=== PATIENT | female | born 1995 | race Caucasian/White ===

== ENCOUNTER 2017-11-14 19:40 | Emergency (ER) | payer OTHER, SELFPAY ==
[2017-11-14 19:56] VITALS: BP 111/77; PULSE 86; RESP 18; TEMP 37.1; O2SAT 98
--- NOTE | 2017-11-14 20:12 | ED.PREGNANCY ---
HPI - General Chief complaint: OB/Uterine Contractions Stated complaint: 15 WKS FALL BLEEDING CRAMPING Time Seen by Provider: 11/14/17 20:12 Source: patient Mode of arrival: ambulatory Limitations: no limitations History of Present Illness HPI Narrative: Patient is a 21-year-old at 15 weeks EGA by last menstrual. Here for evaluation of abdominal cramping and vaginal spotting after fall. Patient states that prior to arrival earlier this afternoon she was tripped by her large family dog. She states that she fell and landed on her right abdomen. Did not hit her head. No loss of consciousness. No extremity injuries. No neck pain. She states she was able to ambulate afterwards. Since then she has had pain in her right abdomen and also with some cramping. She states she urinated after she got up and when she wiped she noticed some spotting. She thinks it is coming from the vaginal vault. Is being followed by [facility] secondary to her other medical problems. 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 Patient : Yes Related Data Home Medications Medication Instructions Recorded Confirmed acetazolamide [Diamox Sequels] 1 tab PO BID #0 12/11/16 citalopram [Celexa] 2 tab #0 12/11/16 vit-iron fum-folic ac 1 tab PO DAILY #0 12/11/16 11/14/17 [Mynatal] Allergies Allergy/AdvReac Type Severity Reaction Status Date / Time Penicillins [PENICILLINS] Allergy Severe SOB, HIVES Verified 11/14/17 20:00 Review of Systems Constitutional Denies chills, Denies fever(s) and Denies headache(s) ENT Ears, Nose, Mouth, and Throat: Denies headache(s) Cardiovascular Denies chest pain and Denies dyspnea Respiratory Denies dyspnea Gastrointestinal Gastrointestinal: Reports abdominal pain, Reports cramping, Denies diarrhea, Denies nausea and Denies vomiting Genitourinary Denies dysuria, Denies pelvic pain and Denies flank pain Comments: Vaginal spotting Musculoskeletal Denies myalgias and Denies arthralgias Integumentary/Breasts Denies lesions and Denies rash Neurologic Denies headache(s) Hematologic/Lymphatic Denies easy bleeding and Denies easy bruising PMFSH - Past Medical History History of bacterial meningitis Surgical history: Reports other (PP shunt placement) Patient : Yes Psychiatric history: Reports no psych history Exam Initial Vital Signs Initial Vital Signs: Vital Signs Temperature 98.8 F 11/14/17 19:56 Pulse Rate 86 11/14/17 19:56 Respiratory Rate 18 11/14/17 19:56 Blood Pressure 111/77 11/14/17 19:56 Pulse Oximetry 98 11/14/17 19:56 Const General: cooperative, healthy appearing, comfortable, well developed, well groomed and No acute distress Orientation: alert, awake and oriented x3 HENMT Head: normal to inspection, normocephalic and atraumatic Resp Effort & Inspection: normal respiratory effort Auscultation: clear to auscultation bilaterally Cardio Rate: regular rate Rhythm: regular rhythm Pulses: radial pulses present GI Inspection: non-distended Palpation: soft, No firm, No guarding and No tender Back/Spine/Pelvis Back: No CVA tenderness Cervical Spine: No cervical spinal tenderness Thoracic/Lumbar Spine: No thoracic spinal tenderness and No lumbar spinal tenderness Skin Other: Abdominal surgical scars consistent with stated history otherwise no acute skin changes Neuro General: alert, awake and oriented x3 Cognition: normal cognition Speech: speech normal Gait: normal gait Motor: muscle tone normal throughout Sensory Exam: no sensory deficits noted Extrem General: normal to inspection and capillary refill normal Right upper extremity: normal to inspection Left upper extremity: normal to inspection Right lower extremity: normal to inspection Left lower extremity: normal to inspection Psych Appearance: grossly normal and well kempt Course Orders Ordered: ED Orders 11/14/17 20:13 US OB >= 14 weeks Fetus Stat Vital Signs - 8 hr 11/14/17 19:56 Temperature 98.8 F Pulse Rate 86 Respiratory Rate 18 Blood Pressure 111/77 Pulse Oximetry 98 MDM - OB/Uterine Contractions Imaging Data US - abdomen: Radiologist's impression: [address] [address] Ultrasound Report Signed Patient: Israel Mehta [facility]#: [id number] : 1995Acct:[id number] Age/Sex: 21 / FDate of Service: 11/14/17 Loc: ED Accession Number: [id number] Procedure: US OB >= 14 weeks Fetus Ordering Provider: Lanker,Rocky D.O. PROCEDURE: US OB >= 14 WEEKS FETUS INDICATIONS: 15 weeks EGA fall on ABD with cramping OUTSIDE/PRIOR DATING DATA: Last menstrual period (LMP): Unknown. LMP-based estimated date of delivery (FIORDALIZA): N./A. First dating scan (date and location): 11/14/17, . Estimated date of delivery (FIORDALIZA) from first dating scan: 05/03/18. TECHNIQUE: Real-time scanning was performed of the fetus, with image documentation and biometric measurements. Endovaginal scanning: Not done COMPARISON: None. FINDINGS: General: A single live intrauterine gestation is present. Presentation: Transverse, with the head to the maternal left. Placenta: Placental position is posterior, without previa. No findings of placental abruption cannot be seen. Amniotic fluid index: 12.4 cm, normal range is 5-24 cm. heart rate: 153 beats per minute. Maternal cervical canal: 6.1 cm long. Normal lower limit is 2.5 cm. biometrics: Biparietal diameter: 3.1 cm equals 15 weeks 6 days Head circumference: 11.6 cm equals 15 weeks 5 days Abdominal circumference: 9.8 cm equals 15 weeks 6 days Femur length: 1.8 cm equals 15 weeks 3 days Estimated gestational age from initial scan: not applicable. Composite gestational age from present scan: 15 weeks 5 days Estimated weight and percentile: Not calculated Measurement variability for biometric dating: +/- 7 days from 14 weeks to 15 weeks 6 days gestation, +/- 10 days from 16 weeks to 21 weeks 6 days gestation, +/- 2 weeks from 22 weeks to 27 weeks 6 days gestation, +/- 3 weeks for 28 weeks gestation or later. weight reference: 4500 g or EFW >90/95% is considered macrosomia or large for gestational age. EFW <10% is small for gestational age. EFW 5% or less is considered intra-uterine growth restriction. Anatomic survey: Not fully evaluated this stage of gestation. No alfredo abnormalities are identified, however. IMPRESSION: No findings of placental abruption can be seen. A single live intrauterine is seen. The estimated gestational age is 15 weeks 5 days, which corresponds to an estimated due date of 05/03/18. Dictated by: Gallito Elizondo M.D. on 11/14/2017 at 21:47 Approved by: Gallito Elizondo M.D. on 11/14/2017 at 21:5 MDM Narrative Medical decision making narrative: No abnormality seen on pelvic ultrasound. No signs of abruption. Patient has benign abdominal exam. Patient refused to have blood drawn here in the emergency department stating that she just had blood drawn by her OB and does have a follow-up tomorrow with her OB where they are going to draw all more blood. Patient does not know her blood type. Patient's states that he is Rh positive. The patient states she did not receive any RhoGAM shots during her 1st of which makes the chances of her being Rh-negative unlikely. We did discuss that unless she specifically knew her blood type or we had on file which we do not that there is the possibility that she would need RhoGAM in the situation. We did discuss that RhoGAM prevent issues with future pregnancies to include miscarriage in demise. Patient expressed understanding of all this and still would not like to have any blood drawn here in the ER. Feel like she has the capacity to make decisions. She was given return precautions. The patient and her both expressed understanding and agreement with plan. Discharge Plan Departure Patient Disposition: Home Clinical Impression: Right sided abdominal pain, , Fall Instructions: DI for Abdominal Pain -- Early Activity Restrictions/Additional Instructions: Keep her follow-up that you have with your OB doctor tomorrow. You opted to not have any blood drawn here in the emergency department despite our conversations. Return to the emergency department for any new symptoms, worsening pain, loss of fluid, worsening vaginal bleeding, worsening abdominal pain, or any other concerning symptoms Prescriptions: No Action acetazolamide [Diamox Sequels] 500 MG capsule, extended release 1 tab PO BID Qty: 0 RF: 0 citalopram [Celexa] 10 MG tablet 2 tab Qty: 0 RF: 0 vit-iron fum-folic ac [Mynatal] 1 EACH capsule 1 tab PO DAILY Qty: 0 RF: 0
--- NOTE | 2017-11-14 21:31 | PC.NURSE ---
Pt refusing blood draw. States she spoke with her [employer] doctor on the phone and was told she does not need a blood draw. Provider aware.
[2017-11-14 22:10] VITALS: BP 125/84; PULSE 91; RESP 14; O2SAT 97
== END 2017-11-14 22:11 | disposition home or self-care (01) ==
PROVIDERS: Emergency Provider Emergency Medicine
DX: O26.91 Pregnancy related conditions, unspecified, first trimester (principal); R10.9 Unspecified abdominal pain; W01.0XXA Fall on same level from slipping, tripping and stumbling without subsequent striking against object, initial encounter; Z3A.15 15 weeks gestation of pregnancy
CPT/HCPCS: 76811; 99282; 99283

== ENCOUNTER 2018-06-25 16:09 | Emergency (ER) | payer OTHER, SELFPAY ==
[2018-06-25 16:30] VITALS: BP 125/92; PULSE 72; RESP 22; TEMP 36.7; O2SAT 100; BMI 32.3
--- NOTE | 2018-06-25 17:14 | DI.CT.S_ITS ---
PROCEDURE: CT ABDOMEN PELVIS W CON INDICATIONS: abd pain TECHNIQUE: After the administration of intravenous contrast, 5 mm thick sections acquired from the diaphragm to the symphysis. 5 mm coronal and sagittal reformats were acquired. For radiation dose reduction, the following was used: automated exposure control, adjustment of mA and/or kV according to patient size. COMPARISON: None. FINDINGS: Image quality: Excellent. ABDOMEN: Lung bases: Lung bases are clear. Heart size is normal. Solid organs: Liver is normal in size and enhancement. Gallbladder is within normal limits. Biliary system is non dilated. Pancreas enhances normally. Spleen is normal in size and enhancement. No adrenal nodules. Kidneys demonstrate normal size and enhancement, without hydronephrosis. Peritoneum and bowel: Bowel loops demonstrate normal wall thickness and caliber. No pneumoperitoneum. Small amount of free fluid in the pelvis. Bilateral peritoneal catheters are present. Fluid-filled small and large bowel loops are present. Normal appendix. Nodes and vessels: No retroperitoneal or mesenteric adenopathy by size criteria. Mildly prominent mesenteric lymph nodes are present. Aorta and inferior vena cava are normal in size. Miscellaneous: No ventral hernias. PELVIS: Genitourinary: Bladder wall thickness is normal. Miscellaneous: No inguinal hernias or adenopathy. Bones: No suspicious bony lesions. No vertebral body compression fractures. Intrathecal catheter. IMPRESSION: 1. Normal appendix. 2. Fluid filled bowel loops associated with mesenteric lymph node prominence, indicating gastroenteritis/mesenteric adenitis. Dictated by: Teresa Zamora M.D. on 06/25/2018 at 18:26 Approved by: Teresa Zamora M.D. on 06/25/2018 at 18:28
--- NOTE | 2018-06-25 17:23 | ED_ITS ---
HPI - Nausea/Vomiting/Diarrhea <JUAN FRANCISCO Miranda - Last Filed: 06/25/18 18:51> General Chief complaint: Nausea/Vomiting/Diarrhea Stated complaint: vomiting,diarrhea,blood in stool, fever,not eating Time Seen by Provider: 06/25/18 16:40 Source: patient Mode of arrival: ambulatory Limitations: no limitations History of Present Illness HPI Narrative: pt says she has had continuous diarrhea since , went to different ER Tuesday and at that time she was vomiting and diarrhea both, they gave her ivf and meds for vomiting, since then the vomiting has stopped, she is eating and drinking normally, but the diarrhea has been nonstop, she took immodium and no change, last bowel movement while here, and it was first one that looked somewhat normal, so far the poop has been green bile looking and this one was soft brown, no abd pain, no fever, no trouble urinating, had c section 8 weeks ago MD complaint: diarrhea Onset (ago): day(s) Description of Vomiting: watery, bilious and continuous Description of Diarrhea: watery, green and continuous Associated Abdominal Pain: No Severity: severe Relieving factors: none Exacerbating factors: none Context: other (none) Associated symptoms: denies other symptoms Related Data Home Medications Medication Instructions Recorded Confirmed acetazolamide [Diamox Sequels] 1 tab PO BID #0 12/11/16 citalopram [Celexa] 2 tab #0 12/11/16 vit-iron fum-folic ac 1 tab PO DAILY #0 12/11/16 11/14/17 [Mynatal] Previous Rx's Medication Instructions Recorded metronidazole [Flagyl] 500 mg PO QID 7 Days #28 tab 06/25/18 ondansetron HCl [Zofran] 4 mg PO Q6-8H PRN #14 tab 06/25/18 Allergies Allergy/AdvReac Type Severity Reaction Status Date / Time Penicillins [PENICILLINS] Allergy Severe SOB, HIVES Verified 06/25/18 17:12 Review of Systems <JUAN FRANCISCO Miranda - Last Filed: 06/25/18 18:51> Constitutional Reports as per HPI and Reports system reviewed and no additional complaints, except as docu ENT Ears, Nose, Mouth, and Throat: Denies dizziness Cardiovascular Denies chest pain and Denies dyspnea Respiratory Denies dyspnea Gastrointestinal Gastrointestinal: Reports as per HPI, Denies abdominal pain, Denies melena, Denies constipation, Denies cramping, Reports diarrhea, Reports loose stools, Denies nausea and Denies vomiting Genitourinary Reports as per HPI, Denies dysuria and Denies flank pain Musculoskeletal Denies back pain Neurologic Denies dizziness PFSH <JUAN FRANCISCO Miranda - Last Filed: 06/25/18 18:51> Social History Smoking Status: Never smoker Social History Smoking Status: Never smoker Exam <JUAN FRANCISCO Miranda - Last Filed: 06/25/18 18:51> Initial Vital Signs Initial Vital Signs: Vital Signs Temperature 98.1 F 06/25/18 16:30 Pulse Rate 72 06/25/18 16:30 Respiratory Rate 22 06/25/18 16:30 Blood Pressure 125/92 H 06/25/18 16:30 Pulse Oximetry 100 06/25/18 16:30 Const General: cooperative, healthy appearing, comfortable, well developed and well groomed Nutritional Appearance: average body habitus Orientation: alert, awake and oriented x3 HENMT Head: normal to inspection and normocephalic Ears: hearing grossly normal bilaterally, external ears normal, TM's normal bilaterally and mastoids normal Nose: external nose normal and nares normal Face and sinus: normal facial exam, sinuses nontender and face symmetric Mouth: oral mucosae normal, lip normal, tongue normal, oropharynx normal and moist mucous membranes Teeth and gingiva: dentition normal and gingiva normal Throat: posterior oropharynx normal, tonsils normal and uvula midline Eyes General: appearance normal, both eyes and all related structures Visual [place]: normal visual [place] by confrontation Eyelids: eyelids normal Conjunctivae: conjunctivae normal Sclera: sclerae normal Pupils: PERRL EOM: EOM intact bilaterally Neck Neck: normal visual inspection, full ROM, no meningeal signs, trachea midline, supple and No lymphadenopathy Chest Chest: normal inspection of the chest Resp Effort & Inspection: normal respiratory effort and able to speak in complete sentences Auscultation: clear to auscultation bilaterally Cardio Rate: regular rate Rhythm: regular rhythm Heart Sounds: S1 normal and S2 normal GI Inspection: normal to inspection, non-distended and no obesity Palpation: soft and No tender Auscultation: normal bowel sounds Other: csection surgical site completely healed Back/Spine/Pelvis Cervical Spine: cervical ROM normal Thoracic/Lumbar Spine: thoraco-lumbar ROM normal Skin General: no rashes or lesions noted, elasticity normal, turgor normal and dry skin Neuro General: alert, awake, oriented x3 and meningeal signs present Cognition: normal cognition Speech: speech normal Gait: normal gait Motor: muscle tone normal throughout Sensory Exam: no sensory deficits noted Extrem General: normal to inspection and full ROM Psych Appearance: grossly normal and well kempt Mental Status: mental status grossly normal Speech and Movement: speech and movement normal Mood: congruent mood Affect: normal affect Attitude: cooperative Thought Process: normal Thought Content: normal Judgment: judgment good <Rocky Parr DO - Last Filed: 06/25/18 22:00> Initial Vital Signs Initial Vital Signs: Vital Signs Temperature 98.1 F 06/25/18 16:30 Pulse Rate 72 06/25/18 16:30 Respiratory Rate 22 06/25/18 16:30 Blood Pressure 125/92 H 06/25/18 16:30 Pulse Oximetry 100 06/25/18 16:30 Course <JUAN FRANCISCO Miranda - Last Filed: 06/25/18 18:51> Course Narrative: 1845 results and dc plan discussed, pt would like to try more oral K than all iv, so agreed to change the orders, and after ivf pt can go, f/u with her pcp in 2 days Orders Ordered: ED Orders 06/25/18 16:54 Stool Culture Stat Urine Microscopic Stat 06/25/18 17:14 CT abdomen pelvis w con Stat 06/25/18 17:30 Amylase Stat Complete Blood Count AUTO DIFF Stat Comprehensive Metabolic Panel Stat Lipase Stat 06/25/18 18:07 EKG-12 Lead Stat Discontinued Medications Sodium Chloride (Normal Saline 0.9%) 1,000 mls @ 1,000 mls/hr IV BOLUS ONE Stop: 06/25/18 18:12 Last Infusion: 06/25/18 19:08 Dose: 0 mls/hr Infusion: 06/25/18 18:30 Dose: 1,000 mls/hr Infusion: 06/25/18 17:52 Dose: 0 mls/hr Admin: 06/25/18 17:30 Dose: 1,000 mls/hr Potassium Chloride 40 meq/ (Sodium Chloride) 520 mls @ 130 mls/hr IV NOW ONE Stop: 06/25/18 22:06 Last Infusion: 06/25/18 21:05 Dose: 0 mls/hr Admin: 06/25/18 18:49 Dose: 130 mls/hr Metronidazole (Flagyl) 500 mg in 100 mls @ 100 mls/hr IV NOW ONE Stop: 06/25/18 19:43 Last Infusion: 06/25/18 21:37 Dose: 0 mls/hr Admin: 06/25/18 19:15 Dose: 100 mls/hr Potassium Chloride 20 meq/ (Sodium Chloride) 260 mls @ 130 mls/hr IV NOW ONE Stop: 06/25/18 20:47 Last Admin: 06/25/18 19:02 Dose: Not Given Ondansetron HCl (Zofran) 4 mg IV NOW ONE Stop: 06/25/18 18:50 Last Admin: 06/25/18 19:07 Dose: 4 mg Potassium Chloride (Potassium Chloride) 20 meq PO NOW ONE Stop: 06/25/18 18:08 Last Admin: 06/25/18 18:12 Dose: 20 meq Potassium Chloride (Klor-Con M20) 20 meq PO NOW ONE Stop: 06/25/18 18:49 Last Admin: 06/25/18 19:02 Dose: 20 meq Vital Signs - 8 hr 06/25/18 16:30 06/25/18 18:18 06/25/18 19:30 Temperature 98.1 F Pulse Rate 72 72 70 Respiratory Rate 22 12 23 Blood Pressure 125/92 H Blood Pressure [Left Arm] 115/85 116/70 Pulse Oximetry 100 100 100 06/25/18 20:38 06/25/18 21:42 Temperature Pulse Rate 80 70 Respiratory Rate 17 14 Blood Pressure 112/59 L Blood Pressure [Left Arm] 117/83 Pulse Oximetry 100 100 <Rocky Parr DO - Last Filed: 06/25/18 22:00> Orders Ordered: ED Orders 06/25/18 16:54 Stool Culture Stat Urine Microscopic Stat 06/25/18 17:14 CT abdomen pelvis w con Stat 06/25/18 17:30 Amylase Stat Complete Blood Count AUTO DIFF Stat Comprehensive Metabolic Panel Stat Lipase Stat 06/25/18 18:07 EKG-12 Lead Stat Discontinued Medications Sodium Chloride (Normal Saline 0.9%) 1,000 mls @ 1,000 mls/hr IV BOLUS ONE Stop: 06/25/18 18:12 Last Infusion: 06/25/18 19:08 Dose: 0 mls/hr Infusion: 06/25/18 18:30 Dose: 1,000 mls/hr Infusion: 06/25/18 17:52 Dose: 0 mls/hr Admin: 06/25/18 17:30 Dose: 1,000 mls/hr Potassium Chloride 40 meq/ (Sodium Chloride) 520 mls @ 130 mls/hr IV NOW ONE Stop: 06/25/18 22:06 Last Infusion: 06/25/18 21:05 Dose: 0 mls/hr Admin: 06/25/18 18:49 Dose: 130 mls/hr Metronidazole (Flagyl) 500 mg in 100 mls @ 100 mls/hr IV NOW ONE Stop: 06/25/18 19:43 Last Infusion: 06/25/18 21:37 Dose: 0 mls/hr Admin: 06/25/18 19:15 Dose: 100 mls/hr Potassium Chloride 20 meq/ (Sodium Chloride) 260 mls @ 130 mls/hr IV NOW ONE Stop: 06/25/18 20:47 Last Admin: 06/25/18 19:02 Dose: Not Given Ondansetron HCl (Zofran) 4 mg IV NOW ONE Stop: 06/25/18 18:50 Last Admin: 06/25/18 19:07 Dose: 4 mg Potassium Chloride (Potassium Chloride) 20 meq PO NOW ONE Stop: 06/25/18 18:08 Last Admin: 06/25/18 18:12 Dose: 20 meq Potassium Chloride (Klor-Con M20) 20 meq PO NOW ONE Stop: 06/25/18 18:49 Last Admin: 06/25/18 19:02 Dose: 20 meq Vital Signs - 8 hr 06/25/18 16:30 06/25/18 18:18 06/25/18 19:30 Temperature 98.1 F Pulse Rate 72 72 70 Respiratory Rate 22 12 23 Blood Pressure 125/92 H Blood Pressure [Left Arm] 115/85 116/70 Pulse Oximetry 100 100 100 06/25/18 20:38 06/25/18 21:42 Temperature Pulse Rate 80 70 Respiratory Rate 17 14 Blood Pressure 112/59 L Blood Pressure [Left Arm] 117/83 Pulse Oximetry 100 100 MDM - Nausea/Vomiting/Diarrhea <JUAN FRANCISCO Miranda - Last Filed: 06/25/18 18:51> Differential Diagnosis Likely traveler's diarrhea, food poisoning, gastroenteritis, clostridium difficile infection and dehydration Lab Data Attestation: I reviewed the patient's lab results. Result diagrams: 06/25/18 17:30 06/25/18 17:30 Lab Results 06/25/18 06/25/18 06/25/18 Range/Units 16:54 17:30 17:30 WBC 7.1 (4.5-11.0) X10^3/uL RBC 5.18 (4.0-5.2) X10^6/uL Hgb 12.6 (12.0-16.0) g/dL Hct 38.0 (36-46) % MCV 73.4 L (80-100) fL MCH 24.4 L (26-34) PG MCHC 33.3 (30-36) % RDW 16.7 H (11.6-14.8) % Plt Count 378 (150-400) X10^3/uL Neut % (Auto) 59.7 (50-75) % Lymph % (Auto) 27.2 (25-40) % [place] % (Auto) 10.8 (3-14) % Eos % (Auto) 2.0 (2-4) % Baso % (Auto) 0.3 (0-2) % Neut # (Auto) 4300 (2296-7773) /uL Lymph # (Auto) 1900 (0369-5194) /uL [place] # (Auto) 800 (0-900) /uL Eos # (Auto) 100 (0-450) /uL Baso # (Auto) 0 (0-100) /uL Sodium 140 (137-145) mmol/L Potassium 2.6 L* (3.4-5.1) mmol/L Chloride 103 (98-107) mmol/L Carbon Dioxide 25 (22-32) mmol/L BUN 5 L (7-17) mg/dL Creatinine 0.80 (0.52-1.04) mg/dL Estimated GFR > 60.0 (>60) mL/min BUN/Creatinine Ratio 6.3 (6-22) Glucose 76 (70-100) mg/dL Calcium 9.0 (8.4-10.2) mg/dL Total Bilirubin 0.3 (0.2-1.3) mg/dL AST 45 H (14-36) IU/L ALT 99 H (9-52) IU/L Alkaline Phosphatase 67 (38-126) U/L Total Protein 7.6 (6.3-8.2) g/dL Albumin 4.5 (3.5-5.0) g/dL Globulin 3.1 (1.7-4.1) g/dL Albumin/Globulin Ratio 1.5 (1.0-2.8) Amylase < 30 L (30-110) U/L Lipase 36 (23-300) U/L Urine RBC 0-1/hpf (0-5/HPF) Urine WBC 0-1/hpf (0-5/HPF) Ur Squamous Epith Cells 5-10 /hpf H (0-5/HPF) Urine Bacteria Few (2-10) H (None) Ur Culture Indicated? Cult not indicated Point of Care Testing Test Results Negative Urine Dip Bedside Urine Glucose Negative Bedside Urine Bilirubin - Negative Bedside Urine Ketone - Negative Urine Specific [place] 1.020 Bedside Urine Occult Blood +++ Bedside Urine pH 6.0 Bedside Urine Protein +/- 15 Bedside Urine Urobilinogen - Negative Bedside Urine Nitrite - Negative Bedside Urine Leukocytes - Negative Esterase Imaging Data CT scan - abdomen: Radiologist's impression: PROCEDURE: CT ABDOMEN PELVIS W CON INDICATIONS: abd pain TECHNIQUE: After the administration of intravenous contrast, 5 mm thick sections acquired from the diaphragm to the symphysis. 5 mm coronal and sagittal reformats were acquired. For radiation dose reduction, the following was used: automated exposure control, adjustment of mA and/or kV according to patient size. COMPARISON: None. FINDINGS: Image quality: Excellent. ABDOMEN: Lung bases: Lung bases are clear. Heart size is normal. Solid organs: Liver is normal in size and enhancement. Gallbladder is within normal limits. Biliary system is non dilated. Pancreas enhances normally. Spleen is normal in size and enhancement. No adrenal nodules. Kidneys demonstrate normal size and enhancement, without hydronephrosis. Peritoneum and bowel: Bowel loops demonstrate normal wall thickness and caliber. No pneumoperitoneum. Small amount of free fluid in the pelvis. Bilateral peritoneal catheters are present. Fluid-filled small and large bowel loops are present. Normal appendix. Nodes and vessels: No retroperitoneal or mesenteric adenopathy by size criteria. Mildly prominent mesenteric lymph nodes are present. Aorta and inferior vena cava are normal in size. Miscellaneous: No ventral hernias. PELVIS: Genitourinary: Bladder wall thickness is normal. Miscellaneous: No inguinal hernias or adenopathy. Bones: No suspicious bony lesions. No vertebral body compression fractures. Intrathecal catheter. IMPRESSION: 1. Normal appendix. 2. Fluid filled bowel loops associated with mesenteric lymph node prominence, indicating gastroenteritis/mesenteric adenitis. Dictated by: Teresa Zamora M.D. on 06/25/2018 at 18:26 Approved by: Teresa Zamora M.D. on 06/25/2018 at 18:28 ECG Data Attestation: I personally reviewed and interpreted this ECG as follows: (ekg reviewed by nj and Dr Parr, NSR, HR 70, non specific t wave, normal intervals, normal axis, no st changes) <Rocky Parr, - Last Filed: 06/25/18 22:00> Lab Data Lab Results 06/25/18 06/25/18 06/25/18 Range/Units 16:54 17:30 17:30 WBC 7.1 (4.5-11.0) X10^3/uL RBC 5.18 (4.0-5.2) X10^6/uL Hgb 12.6 (12.0-16.0) g/dL Hct 38.0 (36-46) % MCV 73.4 L (80-100) fL MCH 24.4 L (26-34) PG MCHC 33.3 (30-36) % RDW 16.7 H (11.6-14.8) % Plt Count 378 (150-400) X10^3/uL Neut % (Auto) 59.7 (50-75) % Lymph % (Auto) 27.2 (25-40) % [place] % (Auto) 10.8 (3-14) % Eos % (Auto) 2.0 (2-4) % Baso % (Auto) 0.3 (0-2) % Neut # (Auto) 4300 (8340-0468) /uL Lymph # (Auto) 1900 (3830-6210) /uL [place] # (Auto) 800 (0-900) /uL Eos # (Auto) 100 (0-450) /uL Baso # (Auto) 0 (0-100) /uL Sodium 140 (137-145) mmol/L Potassium 2.6 L* (3.4-5.1) mmol/L Chloride 103 (98-107) mmol/L Carbon Dioxide 25 (22-32) mmol/L BUN 5 L (7-17) mg/dL Creatinine 0.80 (0.52-1.04) mg/dL Estimated GFR > 60.0 (>60) mL/min BUN/Creatinine Ratio 6.3 (6-22) Glucose 76 (70-100) mg/dL Calcium 9.0 (8.4-10.2) mg/dL Total Bilirubin 0.3 (0.2-1.3) mg/dL AST 45 H (14-36) IU/L ALT 99 H (9-52) IU/L Alkaline Phosphatase 67 (38-126) U/L Total Protein 7.6 (6.3-8.2) g/dL Albumin 4.5 (3.5-5.0) g/dL Globulin 3.1 (1.7-4.1) g/dL Albumin/Globulin Ratio 1.5 (1.0-2.8) Amylase < 30 L (30-110) U/L Lipase 36 (23-300) U/L Urine RBC 0-1/hpf (0-5/HPF) Urine WBC 0-1/hpf (0-5/HPF) Ur Squamous Epith Cells 5-10 /hpf H (0-5/HPF) Urine Bacteria Few (2-10) H (None) Ur Culture Indicated? Cult not indicated Point of Care Testing Test Results Negative Urine Dip Bedside Urine Glucose Negative Bedside Urine Bilirubin - Negative Bedside Urine Ketone - Negative Urine Specific [place] 1.020 Bedside Urine Occult Blood +++ Bedside Urine pH 6.0 Bedside Urine Protein +/- 15 Bedside Urine Urobilinogen - Negative Bedside Urine Nitrite - Negative Bedside Urine Leukocytes - Negative Esterase Discharge Plan Departure Patient Disposition: Home Clinical Impression: Gastroenteritis, Dehydration, Hypokalemia Discharge Date/Time: 06/25/18 21:43 Interventions: ED Discharge Assessment Last Done: 06/25/18 21:42 Instructions: DI for Dehydration -- Adult, DI for Viral Gastroenteritis -- Adult, DI for Hypokalemia, Gastroenteritis Diet Prescriptions: New ondansetron HCl [Zofran] 4 mg tablet 4 mg PO Q6-8H PRN (Reason: nausea and vomiting) Qty: 14 RF: 0 metronidazole [Flagyl] 500 mg tablet 500 mg PO QID 7 Days Qty: 28 RF: 0 No Action acetazolamide [Diamox Sequels] 500 MG capsule, extended release 1 tab PO BID Qty: 0 RF: 0 citalopram [Celexa] 10 MG tablet 2 tab Qty: 0 RF: 0 vit-iron fum-folic ac [Mynatal] 1 EACH capsule 1 tab PO DAILY Qty: 0 RF: 0 Referrals: Scott Ramos MD [Physician] - (follow up in 2 days ) Janae Rolon [Medical Student] - Eladia Lorenzo MD [Non-Staff] - Kareen Winkler MD [Physician] - <Rocky Parr DO - Last Filed: 06/25/18 22:00> Cosign ED Attending Iliana Attestation: I was available for consultation during this patient's emergency department encounter
[2018-06-25] MEDS: SODIUM CHLORIDE 0.9% 1,000 ML 1000 ML IV (17:30)
[2018-06-25 17:51] LABS: Add Manual Diff / Slide Review NO; Basophils Absolute Auto 0 /uL (0-100); Basophils Percent Auto 0.3 % (0-2); Eosinophils Absolute Auto 100 /uL (0-450); Hemoglobin 12.6 g/dL (12.0-16.0); Lymphocytes Absolute Auto 1900 /uL (1100-4500); Lymphocytes Percent Auto 27.2 % (25-40); Mean Corpuscular HGB Conc 33.3 % (30-36); Mean Corpuscular Hemoglobin 24.4 PG (26-34); Mean Corpuscular Volume 73.4 fL (80-100); Monocytes Absolute Auto 800 /uL (0-900); Monocytes Percent Auto 10.8 % (3-14); Neutrophils Absolute Auto 4300 /uL (1500-7000); Neutrophils Percent Auto 59.7 % (50-75); Platelet Count 378 X10^3/uL (150-400); Red Blood Cell Count 5.18 X10^6/uL (4.0-5.2); Red Cell Distribution Width 16.7 % (11.6-14.8); White Blood Cell Count 7.1 X10^3/uL (4.5-11.0)
[2018-06-25 17:58] LABS: Alanine Aminotransferase 99 IU/L (9-52); Albumin 4.5 g/dL (3.5-5.0); Albumin Globulin Ratio 1.5 (1.0-2.8); Alkaline Phosphatase 67 U/L (38-126); Aspartate Aminotransferase 45 IU/L (14-36); BUN Creatinine Ratio 6.3 (6-22); Bilirubin Total 0.3 mg/dL (0.2-1.3); Blood Urea Nitrogen 5 mg/dL (7-17); Carbon Dioxide 25 mmol/L (22-32); Chloride 103 mmol/L (98-107); Estimated Glomerular Filt Rate > 60.0 mL/min (>60); Globulin 3.1 g/dL (1.7-4.1); Glucose 76 mg/dL (70-100); HEMOLYSIS < 15 (0-50); Lipase 36 U/L (23-300); Sodium 140 mmol/L (137-145); Total Protein 7.6 g/dL (6.3-8.2)
[2018-06-25 18:00] LABS: Amylase < 30 U/L (30-110)
[2018-06-25 18:06] LABS: RBC Urine 0-1/HPF (0-5/HPF); Squamous Epithelial Cell Urine 5-10 /HPF (0-5/HPF); WBC Urine 0-1/HPF (0-5/HPF)
[2018-06-25 18:06] LABS: Potassium 2.6 mmol/L (3.4-5.1)
[2018-06-25 18:07] LABS: Bacteria Urine Few (2-10); Culture Indicated Urine Cult Not Indicated
[2018-06-25] MEDS: POTASSIUM CHLORIDE 20 MEQ/15 ML UDC PO (18:12)
[2018-06-25 18:18] VITALS: BP 115/85; PULSE 72; RESP 12; O2SAT 100
[2018-06-25] MEDS: POTASSIUM CHLORIDE 40 MEQ in SODIUM CHLORIDE 0.9% 500 ML 130 ML IV (18:49)
[2018-06-25] MEDS: POTASSIUM CHLORIDE 20 MEQ TAB PO (19:02)
[2018-06-25] MEDS: ONDANSETRON 4 MG/2 ML INJ IV (19:07)
[2018-06-25] MEDS: metroNIDAZOLE 500 MG/100 ML PIGGYBACK 100 MG IV (19:15)
[2018-06-25 19:30] VITALS: BP 116/70; PULSE 70; RESP 23; O2SAT 100
[2018-06-25 20:38] VITALS: BP 117/83; PULSE 80; RESP 17; O2SAT 100
--- NOTE | 2018-06-25 21:14 | PC.NURSE ---
Gave half of potassium chloride 40 meq IV bag, per order.
[2018-06-25 21:42] VITALS: BP 112/59; PULSE 70; RESP 14; O2SAT 100
== END 2018-06-25 21:43 | disposition home or self-care (01) ==
PROVIDERS: Emergency Provider Nurse Practitioner
DX: K52.9 Noninfective gastroenteritis and colitis, unspecified (principal); E87.6 Hypokalemia; E86.0 Dehydration; R10.9 Unspecified abdominal pain
CPT/HCPCS: 36415; 36591; 74177; 80053; 81003; 81015; 81025; 82150; 83690; 85025; 87045; 87177; 87899; 93005; 96361; 96365; 96366; 96375; 99284; 99285; J2405; J3480; Q9967

== ENCOUNTER 2018-11-05 20:40 | Emergency (ER) | payer OTHER, SELFPAY ==
[2018-11-05 21:02] VITALS: BP 131/82; PULSE 90; RESP 16; TEMP 37.2; O2SAT 100; BMI 25.0
--- NOTE | 2018-11-06 02:19 | ED.URI ---
HPI - URI/Sore Throat General Chief Complaint: Upper Respiratory Symptoms Stated Complaint: fever,thinks she has strep, and said passed out History of Present Illness HPI Narrative: Patient left without being seen. Related Data Home Medications Medication Instructions Recorded Confirmed acetazolamide [Diamox Sequels] 1 tab PO BID #0 12/11/16 citalopram [Celexa] 2 tab #0 12/11/16 vit-iron fum-folic ac 1 tab PO DAILY #0 12/11/16 11/14/17 [Mynatal] Previous Rx's Medication Instructions Recorded ondansetron HCl [Zofran] 4 mg PO Q6-8H PRN #14 tab 06/25/18 Allergies Allergy/AdvReac Type Severity Reaction Status Date / Time Penicillins [PENICILLINS] Allergy Severe SOB, HIVES Verified 06/25/18 17:12 PFSH Social History Smoking Status: Never smoker Exam Initial Vital Signs Initial Vital Signs: Vital Signs Temperature 98.9 F 11/05/18 21:02 Pulse Rate 90 11/05/18 21:02 Respiratory Rate 16 11/05/18 21:02 Blood Pressure 131/82 11/05/18 21:02 Pulse Oximetry 100 11/05/18 21:02 Course Vital Signs Vital signs: Vital Signs - 8 hr 11/05/18 21:02 Temperature 98.9 F Pulse Rate 90 Respiratory Rate 16 Blood Pressure 131/82 Pulse Oximetry 100 Discharge Plan Departure Patient Disposition: Left Without Being Seen Clinical Impression: Patient left after triage Discharge Date/Time: 11/05/18 21:54
== END 2018-11-05 21:54 | disposition left against medical advice (07) ==
PROVIDERS: Emergency Provider Emergency Medicine
DX: R50.9 Fever, unspecified (principal)
CPT/HCPCS: 99282

== ENCOUNTER 2018-11-09 08:04 | Emergency (ER) | payer OTHER, SELFPAY ==
[2018-11-09 08:15] VITALS: BP 136/73; PULSE 84; RESP 16; TEMP 36.7; O2SAT 100; BMI 25.0
--- NOTE | 2018-11-09 08:47 | ED_ITS ---
HPI - URI/Sore Throat General Chief Complaint: Upper Respiratory Symptoms Stated Complaint: Sore throat Time Seen by Provider: 11/09/18 08:08 Source: patient Mode of arrival: ambulatory Limitations: no limitations History of Present Illness HPI Narrative: Patient comes emergency department complaining of left-sided sore throat. She states that it started on Tuesday, 4 days ago. Patient states she came to the emergency department that evening, but was busy, so she left without being seen. [place] rapid strep was performed. This was initially negative, but she states she was started on Zithromax for ?prevention?. The patient states that the throat culture came back negative for strep but positive for some other bacteria. Patient states she went to her doctor again yesterday, because she felt the left side was more painful than the right, and that the left tonsil felt larger. She states that her doctor told her that the left tonsil was touching the uvula, and that she should get seen in the emergency department by ENT because she may have an abscess. The patient states she is having fevers up to 103 when the illness for started, and she had a temperature of 102? this morning. Patient states she initially had ?white dots? on her tonsils, but that these have begun to improve. Related Data Home Medications Medication Instructions Recorded Confirmed acetazolamide [Diamox Sequels] 1 tab PO BID #0 12/11/16 citalopram [Celexa] 2 tab #0 12/11/16 vit-iron fum-folic ac 1 tab PO DAILY #0 12/11/16 11/14/17 [Mynatal] Previous Rx's Medication Instructions Recorded ondansetron HCl [Zofran] 4 mg PO Q6-8H PRN #14 tab 06/25/18 prednisone 60 mg PO DAILY #9 tab 11/09/18 Allergies Allergy/AdvReac Type Severity Reaction Status Date / Time Penicillins [PENICILLINS] Allergy Severe SOB, HIVES Verified 11/09/18 08:15 Review of Systems Review of Systems ROS Unobtainable: All systems reviewed & are unremarkable except as noted in HPI and below Constitutional Constitutional: Denies chills, Denies fatigue, Denies fever(s), Denies frequent falls, Denies lethargy and Denies weakness Eyes Eyes: Denies change in vision, Denies eye discharge, Denies irritation and Denies loss of vision ENT Ears, Nose, Mouth, and Throat: Denies change in voice, Denies dizziness, Denies neck pain, Reports sore throat and Denies throat swelling Cardiovascular Cardiovascular: Denies chest pain, Denies irregular heart rhythm, Denies lightheadedness, Denies palpitations, Denies dyspnea, Denies dyspnea on exertion and Denies orthopnea Respiratory Respiratory: Denies cough, Denies dyspnea, Denies dyspnea on exertion and Denies wheezing Gastrointestinal Gastrointestinal: Denies abdominal pain, Denies change in bowel habits, Denies diarrhea, Denies nausea and Denies vomiting Genitourinary Genitourinary: Denies hematuria, Denies flank pain, Denies urinary incontinence and Denies urinary urgency Musculoskeletal Musculoskeletal: Denies back pain, Denies muscle weakness, Denies neck pain, Denies numbness and Denies tingling Integumentary/Breasts Skin/Breast: Denies pruritus, Denies erythema, Denies rash and Denies wounds Neurologic Neurologic: Denies behavioral changes, Denies confusion, Denies dizziness, Denies frequent falls, Denies loss of vision, Denies numbness, Denies tingling and Denies weakness Psychiatric Psychiatric: Denies anxiety, Denies behavioral changes, Denies confusion, Denies depression, Denies homicidal ideation and Denies suicidal ideation Endocrine Endocrine: Denies fatigue, Denies flushing and Denies palpitations Hematologic/Lymphatic Hematologic/Lymphatic: Denies easy bruising Allergic/Immunologic Allergic/Immunologic: Denies urticaria, Denies throat swelling and Denies wheezing [facility] Medical History (Updated 11/09/18 @ 08:57 by Monica Michele MD) Healthy adult (Acute) Surgical History No pertinent past surgical history (Acute) Social History Smoking Status: Never smoker Social History Smoking Status: Never smoker Exam Narrative Exam Narrative: HEENT, continued: Patient's pharyngeal exam reveals a very open throat with no uvular edema. There is no distortion or asymmetry of soft palate. No appearance of peritonsillar abscess. The left tonsil is slightly larger than the right, but otherwise the same in appearance. No exudates. No ulcerations. Patient has what appear to be nearly resolved vesicular lesions on her bilateral tonsils. The posterior pharynx is non edematous. No lesions in the posterior pharynx. No swelling of the tongue. All mucosal surfaces are pink. No drainage in the posterior pharynx. Patient's voice is not muffled. She is handling her secretions without difficulty, and no drooling is noted. Initial Vital Signs Initial Vital Signs: Vital Signs Temperature 98.0 F 11/09/18 08:15 Pulse Rate 84 11/09/18 08:15 Respiratory Rate 16 11/09/18 08:15 Blood Pressure 136/73 11/09/18 08:15 Pulse Oximetry 100 11/09/18 08:15 Const General: cooperative and well developed Nutritional Appearance: well nourished Orientation: alert, awake, oriented x3 and not confused HENMT Head: normocephalic and atraumatic Ears: external ears normal Nose: external nose normal and No nasal discharge Face and sinus: face symmetric and No dry mucous membranes Mouth: oral mucosae normal and moist mucous membranes Teeth and gingiva: dentition normal Throat: posterior oropharynx normal, tonsils normal (See above description) and uvula midline Eyes General: appearance normal, both eyes and all related structures Eyelids: eyelids normal Conjunctivae: conjunctivae normal Sclera: sclerae normal Pupils: PERRL EOM: EOM intact bilaterally Neck Neck: normal visual inspection, trachea midline, No lymphadenopathy, No midline deformity and No JVD Chest Chest: normal inspection of the chest Resp Effort & Inspection: normal respiratory effort, able to speak in complete sentences, no respiratory distress and no use of accessory muscles Skin General: no rashes or lesions noted, No jaundice and No petechiae Neuro General: alert, oriented x3, gait normal and no focal motor deficits Speech: speech normal Extrem General: full ROM Psych Appearance: well kempt Mental Status: mental status grossly normal Attitude: cooperative Thought Content: normal and suicidality Judgment: judgment good Course Course Course Narrative: I had an extended discussion with this patient regarding the advice she was given yesterday versus my findings today. At this time, I have explained to the patient that I do not find any evidence of a peritonsillar abscess. I have diagrammed for her what a normal pharynx should look like, verses the appearance with a peritonsillar abscess. The patient does have a slightly larger tonsil on the left than the right, but otherwise, the tonsils do not differ from one another in appearance. The patient has not yet completed her antibiotic course, and I have advised her that she should do this. The patient has expressed dissatisfaction with the fact that ENT is not going to be emergently consulted in the ED. I have discussed with her that even if she had a peritonsillar abscess, this would not be a reason for emergent ENT consultation. Additionally, were an aspiration of the peritonsillar abscess indicated, this would generally be done by myself, but I have not found any indication whatsoever that a peritonsillar abscess is present. The patient is speaking normally. She is handling her secretions well without drooling, and her throat exam is actually fairly benign. There is no evidence whatsoever of impending airway compromise. The patient also expresses concern because it hurts to swallow, and she has to take naproxen in order to be able to eat mashed potatoes and drink fluid. I have discussed with her that this is not uncommon with either viral or bacterial pharyngitis, and additionally, that pain can be skewed more to one side than the other. I have offered the patient analgesia in the emergency department, even with prednisone, and the patient has declined, stating that she will just go back to her doctor. I have given her follow-up information for ENT, as well as a prescription for prednisone, which I feel will likely be helpful for her pharyngeal discomfort. We have discussed the usual indications for return, as well as symptomatic management at home. Vital Signs Vital signs: Vital Signs - 8 hr 11/09/18 08:15 Temperature 98.0 F Pulse Rate 84 Respiratory Rate 16 Blood Pressure 136/73 Pulse Oximetry 100 MDM - URI/Sore Throat Medical Records Attestation: I reviewed the patient's medical records. Discharge Plan Departure Patient Disposition: Home Clinical Impression: Pharyngitis Qualifiers: Pharyngitis/tonsillitis etiology: unspecified etiology Qualified Code(s): J02.9 - Acute pharyngitis, unspecified Discharge Date/Time: 11/09/18 09:00 Instructions: DI for Pharyngitis/Tonsillopharyngitis -- Adult Activity Restrictions/Additional Instructions: There is no evidence of peritonsillar abscess at this time. Your tonsils are fairly symmetrical, and you're on appropriate antibiotics for pharyngitis. There is no evidence of impending airway compromise, and you are handling your saliva well. There is no indication for either emergent ENT consult or for attempted drainage. It is normal to have discomfort with swallowing for some days with a throat infection. Infection or inflammation can also be more pronounced on 1 side than the other. Please follow up with ENT if you wish, or your primary care physician. Prescriptions: New prednisone 20 mg tablet 60 mg PO DAILY Qty: 9 RF: 0 No Action acetazolamide [Diamox Sequels] 500 MG capsule, extended release 1 tab PO BID Qty: 0 RF: 0 citalopram [Celexa] 10 MG tablet 2 tab Qty: 0 RF: 0 vit-iron fum-folic ac [Mynatal] 1 EACH capsule 1 tab PO DAILY Qty: 0 RF: 0 ondansetron HCl [Zofran] 4 mg tablet 4 mg PO Q6-8H PRN (Reason: nausea and vomiting) Qty: 14 RF: 0 Referrals: Tripp Hernandez MD [Physician] -
== END 2018-11-09 09:00 | disposition home or self-care (01) ==
PROVIDERS: Emergency Provider Emergency Medicine
DX: J02.9 Acute pharyngitis, unspecified (principal)
CPT/HCPCS: 99282